=== PATIENT | male | born 1985 | race Caucasian/White ===

== ENCOUNTER 2019-07-26 10:39 | Emergency (ER) | payer SELFPAY ==
[~2019-07-26] VITALS: Ht 182.9 cm; Wt 101.0 kg
[2019-07-26 14:50] VITALS: BP 118/76
== END 2019-07-26 15:10 | disposition home or self-care (01) ==
LOC: ER 10:39
DX: J06.9 Acute upper respiratory infection, unspecified (principal)
CPT/HCPCS: 99281